=== PATIENT | female | born 1970 | race Caucasian/White ===

== ENCOUNTER 2019-10-25 07:13 | Emergency (ER) | payer BC ==
--- NOTE | 2019-10-25 07:23 | ERPHSYRPT ---
- History of Present Illness Time Seen by Provider: 10/25/19 07:22 Source: patient, family Exam Limitations: no limitations Physician History: 49 y/o white female presents with injury to left ankle. occurred [employer] fishing [employer]. 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 no head injury. no other area of injury. Method of Injury: twisted Occurred: just prior to arrival Quality: constant, aching Severity of Pain-Max: moderate Severity of Pain-Current: moderate Lower Extremities Pain: ankle: left Modifying Factors: Improves With: movement Associated Symptoms: unable to bear weight Allergies/Adverse Reactions: No Known Drug Allergies Allergy (Unverified 10/25/19 07:29) Home Medications: Gabapentin 300 mg PO DAILY 10/25/19 [History] Omeprazole 20 mg PO DAILY 10/25/19 [History] Ropinirole HCl 0.5 mg [Requip 0.5 MG] 0.5 mg PO DAILY 10/25/19 [History] - Review of Systems Constitutional: No Symptoms Eyes: No Symptoms Ears, Nose, & Throat: No Symptoms Respiratory: No Symptoms Cardiac: No Symptoms Abdominal/Gastrointestinal: No Symptoms Genitourinary Symptoms: No Symptoms Musculoskeletal: Injury (left ankle), Joint Pain Skin: No Symptoms Neurological: No Symptoms Psychological: No Symptoms Endocrine: No Symptoms Hematologic/Lymphatic: No Symptoms Immunological/Allergic: No Symptoms All Other Systems: Reviewed and Negative - Past Medical History Neurological History: No Pertinent History ENT History: No Pertinent History Cardiac History: No Pertinent History Respiratory History: No Pertinent History Endocrine Medical History: No Pertinent History Musculoskeletal History: No Pertinent History GI Medical History: No Pertinent History History: No Pertinent History Psycho-Social History: No Pertinent History Female Reproductive Disorders: No Pertinent History - Past Surgical History Neuro Surgical History: No Pertinent History Cardiac: No Pertinent History Respiratory: No Pertinent History Gastrointestinal: No Pertinent History Genitourinary: No Pertinent History Musculoskeletal: No Pertinent History Female Surgical History: No Pertinent History - Nursing Vital Signs Nursing Vital Signs: Initial Vital Signs Temperature 99.3 F 10/25/19 07:19 Pulse Rate 89 10/25/19 07:19 Respiratory Rate 17 10/25/19 07:19 Blood Pressure 139/89 10/25/19 07:19 O2 Sat by Pulse Oximetry 98 10/25/19 07:19 Pain Scale Pain Intensity 8 - Physical Exam General Appearance: mild distress, alert, anxiety Eyes, Ears, Nose, Throat Exam: normal ENT inspection, moist mucous membranes Neck Exam: normal inspection, non-tender, supple, full range of motion Cardiovascular/Respiratory Exam: chest non-tender Gastrointestinal/Abdominal Exam: non-tender Back Exam: normal inspection, normal range of motion, No CVA tenderness, No vertebral tenderness Hips Exam: bilateral: non-tender, normal inspection, normal range of motion, no evidence of injury Legs Exam: bilateral leg: non-tender, normal inspection, normal range of motion , no evidence of injury Knees Exam: bilateral knee: non-tender, normal inspection, normal range of motion, no evidence of injury Ankle Exam: right ankle: non-tender, normal inspection, normal range of motion, no evidence of injury, left ankle: bone tenderness, limited range of motion, soft tissue tenderness, swelling Foot Exam: bilateral foot: non-tender, normal inspection, normal range of motion , no evidence of injury Neuro/Tendon Exam: normal sensation, normal motor functions, normal tendon functions, responds to pain, no evidence tendon injury Mental Status Exam: alert, oriented x 3, cooperative Skin Exam: normal color, warm, dry SpO2 Interpretation: normal O2 Delivery: Room Air Ordered Tests: Active Orders 24 hr Category Date Time Status ANKLE (3 VIEWS) Stat Exams 10/25/19 07:27 Taken Medication Summary Discontinued Medications Generic Name Dose Route Start Last Admin Trade Name Eduard PRN Reason Stop Dose Admin Hydrocodone Bitart/Acetaminophen 1 tab 10/25/19 07:28 10/25/19 07:33 [place] 5/325 Mg PO 10/25/19 07:29 1 tab STAT ONE Administration Hydrocodone Bitart/Acetaminophen Confirm 10/25/19 07:32 [place] 5/325 Mg Administered 10/25/19 07:33 Dose 1 tab .ROUTE .STK-MED ONE Ibuprofen 400 mg 10/25/19 07:28 10/25/19 07:33 Motrin 400 Mg PO 10/25/19 07:29 400 mg STAT ONE Administration Ibuprofen Confirm 10/25/19 07:32 Motrin 400 Mg Administered 10/25/19 07:33 Dose 400 mg .ROUTE .STK-MED ONE - Progress Progress: unchanged, pain not gone completely Progress Note: 10/25/19 08:50 xray left ankle-no acute fx or dislocation Counseled pt/family regarding: diagnosis, need for follow-up, rad results - Departure Departure Disposition: Home Clinical Impression: Ankle sprain Condition: Stable Critical Care Time: No Referrals: GLENNY DOMÍNGUEZ [Primary Care Provider] - ORTHO - DAVID RUBIN NP [NON-STAFF PHY W/O PRIVILEGES] - Instructions: Ankle Sprain (DC) Additional Instructions: wear sravani wrap as needed. elevate left foot above level of heart when not ambulating. use tylenol and ibuprofen for pain. ice pack to left ankle 3 times daily for 2 days. follow up with [facility] for persistent swelling and pain.
[2019-10-25] MEDS ORDERED: NORCO 5/325 MG PO ONE (07:28)
[2019-10-25] MEDS ORDERED: MOTRIN 400 MG PO ONE (07:28)
[2019-10-25] MEDS ORDERED: MOTRIN 400 MG ONE (07:32)
[2019-10-25] MEDS ORDERED: NORCO 5/325 MG ONE (07:32)
[2019-10-25 09:15] VITALS: BP 141/85; PULSE 68; O2SAT 98
--- NOTE | 2019-10-25 09:27 | XRAY ---
Indication: Pain following injury. Comparison: None 3 views of the left ankle demonstrates mild anterolateral soft tissue swelling and small plantar heel spur. No other bony, articular, or soft tissue abnormalities.
== END 2019-10-25 09:26 | disposition home or self-care (01) ==
LOC: ED 07:13
DX: S93.402A Sprain of unspecified ligament of left ankle, initial encounter (principal); X50.1XXA Overexertion from prolonged static or awkward postures, initial encounter; Y93.89 Activity, other specified
CPT/HCPCS: 73610; 99284; A9270-GY

== ENCOUNTER 2022-08-21 09:22 | Day surgery (SDC) | payer BC ==
[2022-08-21] MEDS ORDERED: LIDOCAINE HCL 2% 100 MG/5 ML IJ ONE (09:23)
[2022-08-21] MEDS ORDERED: Depo-Medrol 40 MG/ML IM ONE (09:23)
[2022-08-21] MEDS ORDERED: DIPRIVAN 200 MG/20 ML IV ONE (11:38)
[2022-08-21] MEDS ORDERED: Lactated Ringers 1,000 ML IV ONE (12:26)
--- NOTE | 2022-08-21 12:38 | XRAY ---
Indication: Bilateral L4-S1 MBB. Intraoperative fluoroscopy provided for 12 seconds. Single digital spot image submitted for interpretation demonstrates posterior needle tips projecting over the expected left and right L4-S1 nerve roots. Correlate with intraoperative findings/report.
--- NOTE | 2022-08-21 12:58 | XRAY ---
12 seconds fluoroscopy time in surgery for bilateral L4-S1 MBB.
== END 2022-08-21 12:10 | disposition home or self-care (01) ==
LOC: SDC-PAIN 09:22
PROVIDERS: ATTEND Psychiatry & Neurology Pain Medicine
DX: M47.816 Spondylosis without myelopathy or radiculopathy, lumbar region (principal); Z79.899 Other long term (current) drug therapy
CPT/HCPCS: 64493; 64494; 72020; 77002; J1030; J2704